=== PATIENT | female | born 1985 | race Caucasian/White ===

== ENCOUNTER 2019-04-12 03:07 | Emergency (ER) | payer OTHER ==
[~2019-04-12] VITALS: Ht 167.6 cm; Wt 58.0 kg
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
[2019-04-12 04:34] VITALS: BP 117/76
== END 2019-04-12 04:36 | disposition home or self-care (01) ==
LOC: ED 03:15
DX: Z02.89 Encounter for other administrative examinations (principal)
CPT/HCPCS: 74018; 99283

== ENCOUNTER 2019-11-05 18:39 | Emergency (ER) | payer MEDICAID, OTHER ==
[~2019-11-05] VITALS: Ht 167.6 cm; Wt 62.0 kg
[2019-11-05 18:43] VITALS: BP 128/61
--- NOTE | 2019-11-05 18:56 | NUR ---
RT HAND ABSCESS X 1 WEEK. PT RT HANDED. ADMITS TO IV HEROIN USE. LAST USE: LAST NOC.
[2019-11-05] MEDS ORDERED: SULFAMETH./TRIMETHOPRIM DS 800MG/160MG TABLET PO ONE (19:00)
[2019-11-05] MEDS ORDERED: HYDROcodone/APAP 5/325 TABLET PO ONE (19:00)
[2019-11-05] MEDS ORDERED: CEPHALEXIN 500 MG CAPSULE PO ONE (19:00)
[2019-11-05] MEDS ORDERED: LIDOCAINE-MPF 1%, 5ML INFIL ONE (19:00)
[2019-11-05] MEDS ORDERED: SULFAMETH./TRIMETHOPRIM DS 800MG/160MG TABLET ONE (19:06)
[2019-11-05] MEDS ORDERED: LIDOCAINE-MPF 1%, 5ML ONE (19:07)
[2019-11-05] MEDS ORDERED: HYDROcodone/APAP 5/325 TABLET ONE (19:07)
[2019-11-05] MEDS ORDERED: CEPHALEXIN 500 MG CAPSULE ONE (19:08)
--- NOTE | 2019-11-05 19:16 | NUR ---
PT MEDICATED PER HODA. STANLEY SHANNON AT BS FOR I&D PROCEDURE
[2019-11-05] MEDS ORDERED: NEOSPORIN OINT. PKT 1 PACKET ONE (19:35)
== END 2019-11-05 20:00 ==
LOC: ED 19:53
DX: L02.511 Cutaneous abscess of right hand (principal); F11.10 Opioid abuse, uncomplicated
CPT/HCPCS: 10060; 99284

== ENCOUNTER 2020-10-16 03:33 | Emergency (ER) | payer MEDICAID ==
[~2020-10-16] VITALS: Ht 167.6 cm; Wt 59.7 kg
[2020-10-16 03:36] VITALS: BP 140/80
[2020-10-16] MEDS ORDERED: LIDOCAINE-MPF 1%, 5ML ONE (03:47)
[2020-10-16] MEDS ORDERED: HYDROmorphone 1 MG/ML, 1ML INJ ONE (03:47)
[2020-10-16] MEDS ORDERED: LORazepam 1MG TABLET ONE (03:48)
[2020-10-16] MEDS ORDERED: LORazepam 1MG TABLET PO ONE (04:00)
[2020-10-16] MEDS ORDERED: LIDOCAINE 1%, 10ML INFIL ONE (04:00)
[2020-10-16] MEDS ORDERED: HYDROmorphone 1 MG/ML, 1ML INJ IM ONE (04:00)
[2020-10-16] MEDS ORDERED: DIPH,PERTUSS(ACELL),TET VAC/PF 0.5 ML IM-VACC ONE (04:00)
== END 2020-10-16 04:46 | disposition home or self-care (01) ==
LOC: ED 04:10
DX: L02.416 Cutaneous abscess of left lower limb (principal); R00.0 Tachycardia, unspecified; J45.909 Unspecified asthma, uncomplicated
CPT/HCPCS: 10060; 96372; 99284; J1170